=== PATIENT | male | born 1970 | race Hispanic/Latino ===

== ENCOUNTER 2019-04-22 18:36 | Emergency (ER) | payer OTHER ==
--- NOTE | 2019-04-22 19:12 | Emergency Department Report ---
ED General Adult HPI - General Chief complaint: Extremity Injury, Upper Stated complaint: CUT LEFT HAND NUMB Time Seen by Provider: 04/22/19 19:10 Source: patient Mode of arrival: Ambulatory Limitations: No Limitations - History of Present Illness Initial comments: 48-year-old male with a history of diabetes presents after cutting his left hand while using a chainsaw 30 minutes prior to arrival emergency department. Patient is right-hand dominant. He states his last tetanus shot was 1-1/2 years ago. Patient states that he wrapped his hand and thus presented here. Patient complains of numbness in his left hand. Patient denies any other injuries to his extremities or any intracranial injuries. - Related Data Previous Rx's Medication Instructions Recorded Last Taken Type Clindamycin [Clindamycin CAP] 300 mg PO Q8H #21 cap 04/22/19 Unknown Rx oxyCODONE /ACETAMINOPHEN [Percocet 1 tab PO Q6HR PRN #20 tablet 04/22/19 Unknown Rx 5/325] Allergies Allergy/AdvReac Type Severity Reaction Status Date / Time No Known Allergies Allergy Unverified 04/22/19 18:47 ED Review of Systems ROS: Stated complaint: CUT LEFT HAND NUMB Other details as noted in HPI Constitutional: denies: chills, fever Eyes: denies: eye pain, eye discharge, vision change ENT: denies: ear pain, throat pain Respiratory: denies: cough, shortness of breath, wheezing Cardiovascular: denies: chest pain, palpitations Endocrine: no symptoms reported Gastrointestinal: denies: abdominal pain, nausea, diarrhea Genitourinary: denies: urgency, dysuria Musculoskeletal: arthralgia Skin: denies: rash, lesions Neurological: denies: headache, weakness, paresthesias Psychiatric: denies: anxiety, depression Hematological/Lymphatic: denies: easy bleeding, easy bruising ED Past Medical Hx - Past Medical History Previous Medical History?: Yes Hx Diabetes: Yes (non-insulin dependent) - Surgical History Past Surgical History?: No - Social History Smoking Status: Never Smoker Substance Use Type: None - Medications Home Medications: Home Medications Medication Instructions Recorded Confirmed Last Taken Type Clindamycin [Clindamycin CAP] 300 mg PO Q8H #21 cap 04/22/19 Unknown Rx oxyCODONE /ACETAMINOPHEN [Percocet 1 tab PO Q6HR PRN #20 tablet 03/17/20 Unknown Rx 5/325] ED Physical Exam - General Limitations: No Limitations General appearance: alert, other (Uncomfortable; awake alert) - Head Head exam: Present: atraumatic, normocephalic - Eye Eye exam: Present: normal appearance - ENT ENT exam: Present: mucous membranes moist - Neck Neck exam: Present: normal inspection - Respiratory Respiratory exam: Present: normal lung sounds bilaterally. Absent: respiratory distress - Cardiovascular Cardiovascular Exam: Present: regular rate, normal rhythm, other (2+ radial pulses noted bilaterally in upper extremities). Absent: systolic murmur, diastolic murmur, rubs, gallop - GI/Abdominal GI/Abdominal exam: Present: soft, normal bowel sounds - Rectal Rectal exam: Present: deferred - Extremities Exam Extremities exam: Present: full ROM, other (11 cm laceration noted on the palmar aspect of the left hand extending from the head of the first metacarpal to the hypothenar eminence; patient's FDP and FDS are intact; patient's extensor tendons are intact) - Back Exam Back exam: Present: normal inspection - Neurological Exam Neurological exam: Present: alert, oriented X3 - Psychiatric Psychiatric exam: Present: normal affect, normal mood - Skin Skin exam: Present: warm, dry, intact, normal color. Absent: rash ED Course Vital Signs 04/22/19 04/22/19 04/22/19 18:40 19:16 20:25 Temperature 98.4 F Pulse Rate 85 86 Respiratory 20 12 16 Rate Blood Pressure 148/82 140/83 [Left] O2 Sat by Pulse 100 97 97 Oximetry - Laceration /Wound Repair Left Palm Hand Wound Location: upper extremity Wound Length (cm): 11 Wound's Depth, Shape: superficial Wound Explored: clean Betadine Prep?: Yes Anesthesia: 1% Lidocaine Wound Repaired With: sutures Suture Size/Type: 4:0 Number of Sutures: 17 Layer Closure?: No Sterile Dressing Applied?: Yes ED Medical Decision Making - Lab Data Result diagrams: 04/22/19 19:19 04/22/19 19:19 - Medical Decision Making Case discussed with the hand surgeon at [place] who after hearing the mechanism as well as the description of the patient's injury stated the patient can follow-up and likely have surgery next week. He states that the patient can follow-up in plastics clinic at [place]. He also gave the patient a telephone number of [phone]. Patient's received morphine therapy for pain control as well as Unasyn therapy for IV antibiotic therapy. Patient had wound closed while here in emergency department with sutures loosely approximated and patient to follow-up with hand surgery as an outpatient. Status post receiving laceration repair patient was neurovascularly intact and flexor digitorum superficialis as well as profundus and extensor tendons were intact. - Differential Diagnosis Laceration; foreign body; fracture Critical care attestation.: If time is entered above; I have spent that time in minutes in the direct care of this critically ill patient, excluding procedure time. ED Disposition Clinical Impression: Hand laceration Disposition: - TO HOME OR SELFCARE Is pt being admited?: No Does the pt Need Aspirin: No Condition: Stable Instructions: Laceration (ED) Additional Instructions: Patient will need to follow-up with plastics clinic at [facility] next . [place] with Dr. Jennings [phone] Prescriptions: Clindamycin [Clindamycin CAP] 300 mg PO Q8H #21 cap oxyCODONE /ACETAMINOPHEN [Percocet 5/325] 1 tab PO Q6HR PRN #20 tablet PRN Reason: Pain Referrals: CINTHIA SR MD [Primary Care Provider] - 3-5 Days Time of Disposition: 22:15 Print Language: BENGALI
[2019-04-22] MEDS ORDERED: SODIUM CHLORIDE 0.9% 1000 ML 1,000 ML IV ONE (19:13)
[2019-04-22] MEDS ORDERED: AMPICILLIN/SULBACTA 1.5GM/50ML 1.5 GM/50 ML BAG IV ONE (19:15)
[2019-04-22] MEDS ORDERED: MORPHINE 4 MG/1 ML INJ IV ONE (19:15)
[2019-04-22] MEDS ORDERED: LIDOCAINE (1%) 10 MG/1 ML VIAL 20 ML MDV INFILTRATI ONE (19:23)
[2019-04-22 19:53] LABS: Hematocrit 42.9 % (35.5-45.6); Hemoglobin 15.1 gm/dl (11.8-15.2); Mean Corpuscular HGB Conc 35 % (32-34); Mean Corpuscular Volume 81 fl (84-94); Platelet Count 197 K/mm3 (140-440); Red Blood Count 5.29 M/mm3 (3.65-5.03); Red Cell Distribution Width 13.3 % (13.2-15.2)
[2019-04-22 19:55] LABS: Alanine Aminotransferase 35 units/L (7-56); Albumin 4.4 g/dL (3.9-5); BUN/Creatinine Ratio 17; Blood Urea Nitrogen 15 mg/dL (9-20); Calcium 9.5 mg/dL (8.4-10.2); Hemolysis Index 6
--- NOTE | 2019-04-22 20:37 | XRay Report ---
LEFT HAND 2 VIEW(S) INDICATION / CLINICAL INFORMATION: MAIN: lacerations to palm of hand with circular saw COMPARISON: None available. FINDINGS: No fracture or osseous malalignment. Tiny foci of soft tissue gas are seen at the palmar aspect of th e hand. No embedded radiopaque foreign body. A watch projecting over the wrist and ring on the fourth finger limiting evaluation of these areas. Signer Name: Jose Guillen MD Signed: 04/22/2019 8:32 PM Workstation Name: [email or web address] ([id number]
[2019-04-22 20:42] VITALS: BP 140/83
[2019-04-22] MEDS ORDERED: oxyCODONE /ACETAMINOPHEN 5-325MG TAB PO ONE ×2 (21:09→21:17)
[2019-04-22] MEDS ORDERED: BACITRACIN/POLYMYXIN B OINT 28.35 GM TP ONE (21:10)
[2019-04-23] MEDS ORDERED: NEOMY 3.5 MG/BACIT 400 UNITS/POLY B 5000 UNITS OINT 15 GM TP SCH (08:00)
== END 2019-04-22 21:54 | disposition home or self-care (01) ==
LOC: ED 18:36
DX: S61.412A Laceration without foreign body of left hand, initial encounter (principal); E11.9 Type 2 diabetes mellitus without complications; W29.3XXA Contact with powered garden and outdoor hand tools and machinery, initial encounter; Y93.89 Activity, other specified; Y92.89 Other specified places as the place of occurrence of the external cause; Y99.8 Other external cause status
CPT/HCPCS: 12004; 36415; 73120; 80053; 85027; 96365; 96375; 99284; J0295; J2270; J7030